=== PATIENT | female | born 1940 | race Caucasian/White ===

== ENCOUNTER 2017-03-11 09:05 | Outpatient (CLI) | payer OTHER ==
[~2017-03-11 09:05] MED LIST: ACETAMINOPHEN500 MG PO; ALBUTEROL HFA60 DOSE IN; BISACODYL5 MG; CVS ACID CONTRO20 MG; FLONASE AL50 MCG/ACT; GABAPENTIN600 MG PO; HYDROCHLOROTHIA25 MG PO; HYDROCORT TOP; HYDROXYZINE HCL25 MG PO; IBUPROFEN600 MG PO; JANUVIA100 MG; LEVOTHYROXINE75 MCG PO; LISINOPRIL10 MG PO; LOPERAMIDE HCL2 MG PO; NYSTOP100000 MG TOP; OXAYDO5 MG PO; SMZ-TMP DS1 TAB PO; ZOFRAN ODT4 MG PO
--- NOTE | 2017-03-11 10:44 | DIAGNOSTIC IMAGING REPORT ---
PROCEDURE: DEXA BONE DENSITY STUDY CLINICAL INDICATION: MENOPAUSAL COMPARISON: None. FINDINGS: LUMBAR SPINE: Bone mineral density 0.948, T-score -0.9, normal. LEFT HIP: Bone mineral density 0.753, T-score -1.6, osteopenia. LEFT FEMORAL NECK: Bone mineral density 0.604, T-score -2.2, osteopenia (T score greater or equal to -1.0 to: NORMAL) (T score from -1.1 to -2.4: OSTEOPENIA) (T score ess than or equal to -2.5: OSTEOPOROSIS) IMPRESSION: 1. Normal lumbar spine bone mineral density 2. Left hip osteopenia 3. 10-year fracture risk: Major osteoporotic fracture 19%, hip fracture 4.5%.
--- NOTE | 2017-03-11 12:34 | DIAGNOSTIC IMAGING REPORT ---
PROCEDURE: US KIDNEY/RENAL COMPLETE INDICATION: RENAL CYST TECHNIQUE: Transabdominal scans of the kidneys with calculation of resistive indices. Prevoid and postvoid bladder volumes were obtained. COMPARISON: None. FINDINGS: Study limited by patient's body habitus. RIGHT: Kidney measures 10.2 x 4.2 x 4.9 cm. Cortex measures 1 cm. No calculi, hydronephrosis, renal mass or cyst. Resistive indices measure 0.81 or less. LEFT: Kidney measures 8.9 x 4.9 x 6 cm. Cortex measures 7 mm. No calculi, hydronephrosis, renal mass or cyst. Resistive indices measure 0.78 or less. BLADDER: Bladder has a normal appearance. Bilateral ureteral jets are visualized. Prevoid bladder volume 55 ml. The patient did not void. IMPRESSION: 1. Bilateral renal cortical atrophy 2. Mild elevation of the resistive indices bilaterally which may indicate intrinsic renal disease. Correlate clinically. 3. No evidence of a renal mass or cyst.
== END 2017-03-11 23:00 ==
LOC: US SRH 09:05
DX: N26.1 Atrophy of kidney (terminal) (principal); M85.88 Other specified disorders of bone density and structure, other site